=== PATIENT | female | born 1985 | race African-American/Black ===

== ENCOUNTER 2020-08-11 04:42 | Day surgery (SDC) | payer BC, OTHER ==
[2020-08-09 16:55] VITALS: BMI 43.2
[2020-08-11 06:29] LABS: BASO % 0.4 % (0-2.0); EOS % 2.8 % (0-4.5); HEMATOCRIT 35.2 % (32.4-45.2); HEMOGLOBIN 11.5 GM/dL (10.7-15.3); LYMPH % 22.5 % (8-40); MCH 26.5 pg (25.7-33.7); MCHC 32.6 g/dl (32.0-36.0); MEAN CELL VOLUME 81.3 fl (80-96); MEAN PLT VOLUME 7.7 fl (7.5-11.1); MONO % 7.3 % (3.8-10.2); PLATELET COUNT 315 K/MM3 (134-434); RBC 4.34 M/mm3 (3.60-5.2); RDW 16.6 % (11.6-15.6); WHITE BLOOD COUNT 8.4 K/mm3 (4.0-10.0)
[2020-08-11 06:40] LABS: INR 0.96 (0.83-1.09); PROTHROMBIN TIME (PATIENT) 11.8 SEC (9.7-13.0)
[2020-08-11 06:43] LABS: ACTIVATED PTT 28.8 SECONDS (25.2-36.5)
[2020-08-11] MEDS ORDERED: ONDANSETRON 4 MG/2 ML VIAL IVPUSH PRN (06:46)
[2020-08-11] MEDS ORDERED: PROMETHAZINE HCL 25 MG/1 ML VIAL IVPUSH PRN (06:46)
[2020-08-11] MEDS ORDERED: LACTATED RINGERS SOLUTION 1,000 ML IV SCH ×2 (07:00→09:00)
[2020-08-11 07:42] LABS: POTASSIUM 3.7 mmol/L (3.5-5.1)
[2020-08-11 07:44] LABS: ALBUMIN 2.8 g/dl (3.4-5.0); BLOOD UREA NITROGEN 7.4 mg/dL (7-18); CALCIUM 8.5 mg/dL (8.5-10.1)
[2020-08-11 07:47] LABS: CREATININE 0.8 mg/dL (0.55-1.3)
[2020-08-11 07:49] LABS: BILIRUBIN,TOTAL 0.2 mg/dL (0.2-1); TOT PROT 6.4 g/dl (6.4-8.2)
[2020-08-11] MEDS ORDERED: ceFAZolin SODIUM 1 GM VIAL ONE (08:25)
[2020-08-11] MEDS ORDERED: SODIUM CHLORIDE 0.9% P/F 10 ML VIAL IJ ONE (08:25)
[2020-08-11] MEDS ORDERED: ceFAZolin SODIUM 1 GM VIAL IVPB ONE (08:28)
[2020-08-11] MEDS ORDERED: ACETAMINOPHEN 325 MG TABLET (FP) PO PRN (08:56)
[2020-08-11 15:29] VITALS: BP 119/60; PULSE 72; TEMP 98.4
== END 2020-08-11 15:15 | disposition home or self-care (01) ==
LOC: JASU-SURG 04:42
PROVIDERS: ATTEND Obstetrics & Gynecology
PROC: 0UVC7ZZ Restriction of Cervix, Via Natural or Artificial Opening (ICD-10-PCS; principal; 2020-08-11 08:00)
DX: N88.3 Incompetence of cervix uteri (principal)
CPT/HCPCS: 36415; 76815; 80053; 85025; 85610; 85730; 86780; 86850; 86900; 86901; 94760

== ENCOUNTER 2022-04-09 06:20 | Inpatient (IN) | payer BC, OTHER ==
[2022-04-09] MEDS ORDERED: ELECTROLYTE-148 SOLN 500 ML IV ONE (06:45)
[2022-04-09] MEDS ORDERED: CITRIC ACID/SODIUM CITRATE 30 ML UNIT-DOSE CUP PO ONE (06:45)
[2022-04-09 07:09] VITALS: BMI 48.6
[2022-04-09] MEDS: ELECTROLYTE-148 SOLN 1,000 ML IV SCH (07:15)
[2022-04-09] MEDS ORDERED: morphine SULFATE/PF 1 MG/2 ML (2cc Syringe - QUVA) EP ONE (07:54)
[2022-04-09] MEDS ORDERED: ONDANSETRON 4 MG/2 ML VIAL IVPUSH PRN (07:54)
[2022-04-09] MEDS ORDERED: ePHEDrine SULFATE 50 MG/1 ML AMPULE ONE (08:11)
[2022-04-09] MEDS ORDERED: PHENYLEPHRINE HCL 10 MG/1 ML SINGLE DOSE VIAL ONE (08:11)
[2022-04-09] MEDS ORDERED: CLINDAMYCIN PHOSPHATE 900 MG/6 ML VIAL IVPB ONE (08:12)
[2022-04-09] MEDS ORDERED: PROPOFOL 20 ML ONE (08:13)
[2022-04-09] MEDS ORDERED: ONDANSETRON 4 MG/2 ML VIAL ONE (08:56)
[2022-04-09] MEDS ORDERED: KETOROLAC TROMETHAMINE 30 MG/1 ML VIAL ONE (08:56)
[2022-04-09] MEDS ORDERED: OXYTOCIN 10 UNITS/ML VIAL ONE ×2 (08:56)
[2022-04-09] MEDS ORDERED: IBUPROFEN 800 MG/8 ML IJ IVPB PRN (09:58)
[2022-04-09] MEDS ORDERED: IBUPROFEN 600 MG TABLET (FP) PO PRN (09:58)
[2022-04-09] MEDS ORDERED: METHYLERGONOVINE MALEATE 0.2 MG/1 ML AMP IM PRN (09:58)
[2022-04-09] MEDS ORDERED: OXYTOCIN 20 UNITS in 0.9% NS 20 UNIT/1,000 ML INFUS.BAG IV SCH (10:00)
[2022-04-09] MEDS: PRENATAL VITAMINS W/ FOLIC ACID TABLET (FP) PO SCH (10:07)
[2022-04-09] MEDS ORDERED: OXYTOCIN 20 UNITS in 0.9% NS 20 UNIT/1,000 ML INFUS.BAG IV ONE (10:55)
[2022-04-09 11:47] LABS: HIV INTERPRETATION NEGATIVE (NEGATIVE)
[2022-04-09] MEDS ORDERED: oxyCODONE HCL 5 MG TABLET PO PRN (21:58)
[2022-04-10] MEDS: ACETAMINOPHEN 325 MG TABLET (FP) PO PRN (03:12)
[2022-04-10] MEDS: SIMETHICONE 80 MG TAB.CHEW (FP) PO PRN ×4 (03:13→20:00)
[2022-04-10 06:46] LABS: BASO % 0.3 % (0-2.0); EOS % 0.4 % (0-4.5); HEMATOCRIT 28.6 % (32.4-45.2); HEMOGLOBIN 9.5 GM/dL (10.7-15.3); LYMPH % 14.8 % (8-40); MCH 26.7 pg (25.7-33.7); MCHC 33.2 g/dl (32.0-36.0); MEAN CELL VOLUME 80.4 fl (80-96); MEAN PLT VOLUME 7.6 fl (7.5-11.1); MONO % 10.8 % (3.8-10.2); NEUT % 73.7 % (42.8-82.8); PLATELET COUNT 308 10^3/uL (134-434); RBC 3.56 M/mm3 (3.60-5.2); WHITE BLOOD COUNT 12.1 K/mm3 (4.0-10.0)
[2022-04-10] MEDS: PRENATAL VITAMINS W/ FOLIC ACID TABLET (FP) PO SCH (09:20)
[2022-04-10] MEDS: oxyCODONE HCL 5 MG TABLET PO PRN (09:21)
[2022-04-10 16:53] VITALS: RESP 18
[2022-04-10] MEDS: BISACODYL 10 MG SUPP.RECT RC PRN ×2 (19:07→20:00)
[2022-04-10] MEDS: SENNOSIDES/DOCUSATE COMBO (SENNA PLUS) TABLET (UD) PO PRN (20:00)
[2022-04-10] MEDS: IBUPROFEN 600 MG TABLET (FP) PO PRN (23:45)
[2022-04-11] MEDS: ACETAMINOPHEN 325 MG TABLET (FP) PO PRN ×2 (00:48→10:59)
[2022-04-11] MEDS: IBUPROFEN 600 MG TABLET (FP) PO PRN (08:32)
[2022-04-11] MEDS: SIMETHICONE 80 MG TAB.CHEW (FP) PO PRN (08:33)
[2022-04-11 10:17] VITALS: TEMP 98.3
[2022-04-11] MEDS: PRENATAL VITAMINS W/ FOLIC ACID TABLET (FP) PO SCH (10:59)
[2022-04-11 20:05] VITALS: PULSE 76
[2022-04-11] MEDS: oxyCODONE HCL 5 MG TABLET PO PRN (22:45)
[2022-04-11] MEDS: SENNOSIDES/DOCUSATE COMBO (SENNA PLUS) TABLET (UD) PO PRN (22:46)
[2022-04-12] MEDS: ACETAMINOPHEN 325 MG TABLET (FP) PO PRN (05:59)
[2022-04-12] MEDS: ELECTROLYTE-148 SOLN 1,000 ML IV SCH ×2 (09:12→12:41)
[2022-04-12] MEDS: SIMETHICONE 80 MG TAB.CHEW (FP) PO PRN (09:21)
[2022-04-12] MEDS: IBUPROFEN 600 MG TABLET (FP) PO PRN (09:21)
[2022-04-12] MEDS: PRENATAL VITAMINS W/ FOLIC ACID TABLET (FP) PO SCH (09:21)
[2022-04-12 09:31] VITALS: BP 125/75
== END 2022-04-12 11:30 | disposition home or self-care (01) | DRG 788 ==
LOC: JLDR 06:20 → J3W 11:30
PROVIDERS: ADMIT Obstetrics & Gynecology; ATTEND Obstetrics & Gynecology
PROC: 10D00Z1 Extraction of Products of Conception, Low, Open Approach (ICD-10-PCS; principal; 2022-04-09)
DX: O34.33 Maternal care for cervical incompetence, third trimester (principal); O24.425 Gestational diabetes mellitus in childbirth, controlled by oral hypoglycemic drugs; O99.214 Obesity complicating childbirth; E66.01 Morbid (severe) obesity due to excess calories; O69.81X0 Labor and delivery complicated by cord around neck, without compression, not applicable or unspecified; Z3A.37 37 weeks gestation of pregnancy; Z37.0 Single live birth
CPT/HCPCS: 36415; 82962; 85025; 86803; 87389; 88307-TC

== ENCOUNTER 2024-07-27 06:16 | Inpatient (IN) | payer BC, OTHER ==
[2024-07-27] MEDS: LACTATED RINGERS SOLUTION 500 ML IV ONE (06:35)
[2024-07-27] MEDS ORDERED: LACTATED RINGERS SOLUTION 500 ML IV ONE (06:45)
[2024-07-27 06:56] VITALS: BMI 49.2
[2024-07-27] MEDS: LACTATED RINGERS SOLUTION 1,000 ML IV ONE (07:30)
[2024-07-27] MEDS ORDERED: ONDANSETRON 4 MG/2 ML VIAL ONE (07:42)
[2024-07-27] MEDS ORDERED: METOCLOPRAMIDE HCL INJECTION 10 MG/2 ML VIAL ONE (07:42)
[2024-07-27] MEDS ORDERED: OXYTOCIN 10 UNITS/ML VIAL ONE (07:42)
[2024-07-27] MEDS ORDERED: KETOROLAC TROMETHAMINE 30 MG/1 ML VIAL ONE (07:42)
[2024-07-27] MEDS ORDERED: DEXAMETHASONE SOD PHOSPHATE 4 MG/1 ML VIAL ONE (07:42)
[2024-07-27] MEDS ORDERED: ceFAZolin SODIUM 1 GM VIAL ONE (07:42)
[2024-07-27] MEDS ORDERED: FENTANYL CITRATE/PF 50 MCG/ML VIAL ONE (07:44)
[2024-07-27] MEDS ORDERED: morphine SULFATE/PF 1 MG/2 ML (2cc Syringe - QUVA) ONE (07:44)
[2024-07-27] MEDS: CITRIC ACID/SODIUM CITRATE 30 ML UNIT-DOSE CUP PO ONE (09:20)
[2024-07-27] MEDS ORDERED: METHYLERGONOVINE MALEATE 0.2 MG/1 ML AMP IM PRN (10:12)
[2024-07-27] MEDS ORDERED: ACETAMINOPHEN 325 MG TABLET (FP) PO PRN (10:12)
[2024-07-27] MEDS ORDERED: IBUPROFEN 800 MG/8 ML IJ IVPB PRN (10:12)
[2024-07-27] MEDS ORDERED: OXYTOCIN 20 UNITS in 0.9% NS 20 UNIT/1,000 ML INFUS.BAG IV ONE (12:12)
[2024-07-27] MEDS: OXYTOCIN 20 UNITS in 0.9% NS 20 UNIT/1,000 ML INFUS.BAG IV SCH (12:20)
[2024-07-27] MEDS ORDERED: oxyCODONE HCL 5 MG TABLET PO PRN (22:12)
[2024-07-27] MEDS: FERROUS SO4 325 MG TABLET (FP) PO SCH (22:24)
[2024-07-27] MEDS: SENNOSIDES/DOCUSATE COMBO (SENNA PLUS) TABLET (UD) PO PRN (22:24)
[2024-07-28] MEDS: ACETAMINOPHEN 1000 MG/100 ML BAG IVPB PRN (05:04)
[2024-07-28] MEDS: SIMETHICONE 80 MG TAB.CHEW (FP) PO PRN (05:04)
[2024-07-28 07:06] LABS: HEMATOCRIT 26.8 % (32.4-45.2); HEMOGLOBIN 8.4 GM/dL (10.7-15.3); MCH 25.3 pg (25.7-33.7); MCHC 31.5 g/dl (32.0-36.0); MEAN CELL VOLUME 80.3 fl (80-96); MEAN PLT VOLUME 7.7 fl (7.5-11.1); PLATELET COUNT 235 10^3/uL (134-434); RBC 3.33 M/mm3 (3.60-5.2); RDW 17.2 % (11.6-15.6); WHITE BLOOD COUNT 11.9 K/mm3 (4.0-10.0)
[2024-07-28 09:49] LABS: ANISOCYTOSIS 1+; MACROCYTOSIS 0
[2024-07-28] MEDS ORDERED: BISACODYL 10 MG SUPP.RECT RC PRN (10:12)
[2024-07-28] MEDS: PRENATAL VITAMINS W/ FOLIC ACID TABLET (FP) PO SCH (10:31)
[2024-07-28] MEDS: IBUPROFEN 600 MG TABLET (FP) PO PRN (10:32)
[2024-07-29] MEDS: oxyCODONE HCL 5 MG TABLET PO PRN (20:26)
[2024-07-29 22:48] VITALS: RESP 18
[2024-07-30 10:44] VITALS: BP 133/89; PULSE 71; TEMP 98.4
== END 2024-07-30 11:45 | disposition home or self-care (01) | DRG 788 ==
LOC: JLDR 06:16 → J3W 12:25
PROVIDERS: ADMIT Obstetrics & Gynecology; ATTEND Obstetrics & Gynecology
PROC: 10D00Z1 Extraction of Products of Conception, Low, Open Approach (ICD-10-PCS; principal; 2024-07-27)
PROC: 0DNW0ZZ Release Peritoneum, Open Approach (ICD-10-PCS; 2024-07-27)
DX: O34.219 Maternal care for unspecified type scar from previous cesarean delivery (principal); O62.1 Secondary uterine inertia; O62.0 Primary inadequate contractions; Z3A.37 37 weeks gestation of pregnancy; Z37.0 Single live birth; K66.0 Peritoneal adhesions (postprocedural) (postinfection)
CPT/HCPCS: 36415; 59409; 85025; 86922; 88307-TC; 94010; J0131